=== PATIENT | male | born 2000 | race Hispanic/Latino ===

== ENCOUNTER 2022-02-22 20:17 | Emergency (ER) | payer SELFPAY ==
[2022-02-22] MEDS ORDERED: FLUORESCEIN SODIUM 1 MG/WRAP ONE (21:11)
[2022-02-22] MEDS ORDERED: TETRACAINE HCL 0.5% 4ML OPTH ONE (21:11)
--- NOTE | 2022-02-22 21:30 | EDPHYS ---
Physician Documentation [facility] – [place], [place] Name: Eyad Walter Age: 21 yrs Sex: Male : 2000 Arrival Date: 02/22/2022 Time: 20:23 Bed Treatment Private MD: ED Physician Nathalia Russell HPI: 02/22 21:24 This 21 yrs old Male presents to ER via Ambulatory with complaints of Foreign sd2 Body In Eye. 21:24 21-year-old male presents with chief complaint of "feels like there is something in my sd2 eye." He reports he works in construction and felt like a wood chip may have flown into his eye. He has had tearing and pain to the eye with photophobia.. Historical: - Allergies: 21:01 No Known Allergies; bb - Home Meds: 21:01 None [Active]; bb - PMHx: 21:01 None; bb - PSHx: 21:01 None; bb - Immunization history:: Client reports having NOT received the Covid vaccine. - Social history:: Smoking status: Patient denies any tobacco usage or history of. ROS: 21:24 Constitutional: Negative for fever, chills, and weight loss. sd2 21:24 ENT: Negative for injury, pain, and discharge. 21:24 Eyes: Positive for discharge, foreign body sensation, pain, photophobia, redness, tearing, Negative for icterus, vision loss. Exam: 21:24 Constitutional: This is a well developed, well nourished patient who is awake, alert, sd2 and in no acute distress. Head/Face: Normocephalic, atraumatic. Eyes: EOMI, injected conjunctiva to L eye only, Wood's lamp exam performed after treatment with 2 drops of tetracaine and fluorescein application and corneal abrasion noted at the 6 o'clock position measuring approximately 1.5 cm horizontally, no pain with EOM or signs of globe rupture Vital Signs: 20:57 BP 124 / 73; Pulse 66; Resp 16 S; Temp 97.6(O); Pulse Ox 99% on R/A; Weight 70.31 kg bb (R); Height 5 ft. 8 in. (172.72 cm) (R); Pain 10/10; 20:57 Body Mass Index 23.57 (70.31 kg, 172.72 cm) bb MDM: 21:03 Patient medically screened. sd2 21:24 Differential diagnosis: Corneal abrasion of Corneal ulcer of Foreign body in Acute sd2 iritis of Acute glaucoma in Ultraviolet keratitis in among others. Data reviewed: vital signs, nurses notes. I considered the following discharge prescriptions or medication management in the emergency department Medications were administered in the Emergency Department. See MAR. Historians other than the Patient: Spouse/Significant Other: . Counseling: I had a detailed discussion with the patient and/or guardian regarding: the historical points, exam findings, and any diagnostic results supporting the discharge/admit diagnosis, the need for outpatient follow up, to return to the emergency department if symptoms worsen or persist or if there are any questions or concerns that arise at home. ED course: Exam consistent with corneal abrasion. The patient was treated with ophthalmic antibiotic ointment in the ER and discharged with prescription medication. He was advised to follow-up with his primary care doctor and ophthalmology as needed. He advises understanding of discharge plan and strict return precautions at this time.. Administered Medications: 21:14 Drug: Fluorescein Strip 1 strip Route: Ophthalmic; Site: left eye; mb9 21:47 Follow up: Response: No adverse reaction mb9 21:14 Drug: Tetracaine Drops 0.5 % 1 drops Route: Ophthalmic; Site: left eye; mb9 21:47 Follow up: Response: No adverse reaction mb9 21:30 Drug: ERYTHromycin Ointment 1 application Route: Ophthalmic; Site: left eye; mb9 21:47 Follow up: Response: No adverse reaction mb9 Disposition Summary: 02/22/22 21:30 Discharge Ordered Location: Home sd2 Problem: new sd2 Symptoms: have improved sd2 Condition: Stable sd2 Diagnosis - Injury of conjunctiva and corneal abrasion without foreign body, left eye sd2 Followup: sd2 - With: Private Physician - When: 2 - 3 days - Reason: Recheck today's complaints, Continuance of care, Re-evaluation by your physician Followup: sd2 - With: Olivia Tejeda MD - When: 2 - 3 days - Reason: Wound Recheck Discharge Instructions: - Discharge Summary Sheet sd2 - Corneal Abrasion sd2 Forms: - Medication Reconciliation Form sd2 - Thank You Letter sd2 - Antibiotic Education sd2 - Prescription Opioid Use sd2 Prescriptions: - Erythromycin 5 mg/gram (0.5 %) Ophthalmic Ointment - apply 1 ribbon by OPHTHALMIC route 4 times per day for 5 days; 1 tube; Refills: sd2 0, Product Selection Permitted Signatures: Natalia Ely RN Nathalia Oliver MD MD sd2 Amisha Suarez RN RN mb9
--- NOTE | 2022-02-22 21:30 | ER ---
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 Coronavirus screen: At this time, the client does not indicate any symptoms associated with coronavirus-19. Ebola Screen: No symptoms or risks identified at this time. Initial Sepsis Screen: Does the patient meet any 2 criteria? No. Patient's initial sepsis screen is negative. Does the patient have a suspected source of infection? No. Patient's initial sepsis screen is negative. Risk Assessment: Do you want to hurt yourself or someone else? Patient reports no desire to harm self or others. Onset of symptoms was February 22, 2022. 20:57 Method Of Arrival: Ambulatory 20:57 Acuity: TORO 4 bb Historical: - Allergies: 21:01 No Known Allergies; bb - Home Meds: 21:01 None [Active]; bb - PMHx: 21:01 None; bb - PSHx: 21:01 None; bb - Immunization history:: Client reports having NOT received the Covid vaccine. - Social history:: Smoking status: Patient denies any tobacco usage or history of. Assessment: 21:14 General: Appears uncomfortable. Pain: Complains of pain in left eye. Neuro: Level of mb9 Consciousness is awake, alert, obeys commands, Oriented to person, place, time, situation, Appropriate for age. Cardiovascular: Capillary refill < 3 seconds is brisk Patient's skin is warm and dry. Respiratory: Airway is patent. GI: No signs and/or symptoms were reported involving the gastrointestinal system. : No signs and/or symptoms were reported regarding the genitourinary system. EENT: Eyes left eye is swollen and red. Derm: Skin is pink, warm \T\ dry. Musculoskeletal: Range of motion: intact in all extremities. 21:47 Reassessment: No changes from previously documented assessment. Patient and/or family mb9 updated on plan of care and expected duration. Pain level reassessed. Patient is alert, oriented x 3, equal unlabored respirations, skin warm/dry/pink. Vital Signs: 20:57 BP 124 / 73; Pulse 66; Resp 16 S; Temp 97.6(O); Pulse Ox 99% on R/A; Weight 70.31 kg bb (R); Height 5 ft. 8 in. (172.72 cm) (R); Pain 10/10; 20:57 Body Mass Index 23.57 (70.31 kg, 172.72 cm) ED Course: 20:23 Patient arrived in ED. néstor 20:28 Nathalia Russell MD is Attending Physician. sd2 21:01 Triage completed. bb 21:01 Arm band placed on Patient placed in an exam room, on a stretcher, on pulse oximetry. bb Family accompanied patient. 21:07 Amisha Suarez RN is Primary Nurse. mb9 21:29 Olivia Tejeda MD is Referral Physician. sd2 21:47 Patient did not have IV access during this emergency room visit. intact, bleeding mb9 controlled, No redness/swelling at site. Pressure dressing applied. Administered Medications: 21:14 Drug: Fluorescein Strip 1 strip Route: Ophthalmic; Site: left eye; mb9 21:47 Follow up: Response: No adverse reaction mb9 21:14 Drug: Tetracaine Drops 0.5 % 1 drops Route: Ophthalmic; Site: left eye; mb9 21:47 Follow up: Response: No adverse reaction mb9 21:30 Drug: ERYTHromycin Ointment 1 application Route: Ophthalmic; Site: left eye; mb9 21:47 Follow up: Response: No adverse reaction mb9 Outcome: 21:30 Discharge ordered by . sd2 21:47 Discharged to home ambulatory. mb9 21:47 Condition: stable 21:47 Discharge instructions given to patient, Instructed on discharge instructions, follow up and referral plans. Demonstrated understanding of instructions, follow-up care, medications, Prescriptions given X 1. 21:48 Patient left the ED. mb9 Signatures: Leann, Chrystal es Ely, Natalia, RN RN bb Drew, Nathalia, MD MD sd2 Breneman, Nesha, RN RN mb9
[2022-02-22] MEDS ORDERED: ERYTHROMYCIN 1 APPL/1 GM TUBE ONE (21:43)
[2022-02-22 22:23] VITALS: BP 124/73; TEMP 97.6; O2SAT 99
== END 2022-02-22 21:48 | disposition home or self-care (01) ==
LOC: ER 20:17
DX: S05.02XA Injury of conjunctiva and corneal abrasion without foreign body, left eye, initial encounter (principal)
CPT/HCPCS: 99283

== ENCOUNTER 2022-06-14 21:53 | Emergency (ER) | payer SELFPAY ==
[2022-06-14] MEDS ORDERED: ONDANSETRON 4 MG/2 ML VIAL ONE (23:08)
[2022-06-14] MEDS ORDERED: FAMOTIDINE 20 MG/2 ML VIAL IV ONE (23:08)
[2022-06-14] MEDS ORDERED: KETOROLAC 30 MG/ML INJ ONE (23:08)
[2022-06-14] MEDS ORDERED: NA CHLORIDE 0.9% 1,000 ML ONE (23:08)
[2022-06-14 23:14] LABS: Specific Gravity 1.028 (1.005-1.030); Urine Bilirubin NEGATIVE (Negative); Urine Blood Negative (Negative); Urine Clarity Clear (Clear); Urine Color Light-Yellow (Yellow); Urine Glucose NEGATIVE (Negative); Urine Protein NEGATIVE (Negative); Urine Urobilinogen Normal (Normal); Urine pH 6.5 (5.0-7.0)
[2022-06-14 23:26] LABS: Absolute Lymphocytes (CBC) 1.8 K/uL (0.7-4.9); Hematocrit 37.8 % (39.6-49.0); Lymphocytes % 25.5 % (15.3-44.8); MCV 87.4 fL (80-100); MPV 9.5 fL (7.6-11.3); RBC Red Blood Cell Count 4.33 M/uL (4.33-5.43)
[2022-06-14 23:37] LABS: Albumin 3.7 g/dL (3.4-5.0); Bilirubin Total 0.6 mg/dL (0.2-1.0); Potassium 3.8 mEq/L (3.5-5.1); Protein, Total 7.6 g/dL (6.4-8.2)
--- NOTE | 2022-06-15 02:34 | ER ---
Nurse's Notes [facility] Name: Eyad Walter Age: 21 yrs Sex: Male : 2000 Arrival Date: 06/14/2022 Time: 21:53 Bed 16 Private MD: Diagnosis: Diarrhea, unspecified;Nausea with vomiting, unspecified;Other pneumonia, unspecified organism Presentation: 06/14 22:04 Chief complaint: Spouse and/or significant other states: He has been having abdominal kd3 pain with Nausea vomiting and diarrhea for the past three days. Coronavirus screen: Vaccine status: Patient reports being unvaccinated. Ebola Screen: No symptoms or risks identified at this time. Initial Sepsis Screen: Does the patient meet any 2 criteria? No. Patient's initial sepsis screen is negative. Does the patient have a suspected source of infection? No. Patient's initial sepsis screen is negative. Risk Assessment: Do you want to hurt yourself or someone else? Patient reports no desire to harm self or others. Onset of symptoms was April 11, 2022. 22:04 Method Of Arrival: Ambulatory kd3 22:04 Acuity: TORO 3 kd3 Triage Assessment: 22:06 General: Appears uncomfortable, Behavior is calm, cooperative. Pain: Complains of pain kd3 in epigastric area. Neuro: Level of Consciousness is awake, alert, obeys commands, Oriented to person, place, time, situation. Respiratory: Airway is patent Trachea midline Respiratory effort is even, unlabored, Respiratory pattern is regular, symmetrical. GI: Reports upper abdominal pain, diarrhea, nausea, vomiting. Historical: - Allergies: 22:06 No Known Allergies; kd3 - Immunization history:: Adult Immunizations up to date. - Social history:: Smoking status: Patient denies any tobacco usage or history of. Screenin:56 Abuse screen: Denies threats or abuse. Denies injuries from another. Nutritional ha1 screening: No deficits noted. Tuberculosis screening: No symptoms or risk factors identified. 06/15 03:16 [facility] ED Fall Risk Assessment (Adult) History of falling in the last 3 months, ll3 including since admission No falls in past 3 months (0 pts) Confusion or Disorientation No (0 pts) Intoxicated or Sedated No (0 pts) Impaired Gait No (0 pts) Mobility Assist Device Used No (0 pt) Altered Elimination No (0 pt) Score/Fall Risk Level 0 - 2 = Low Risk Oriented to surroundings, Maintained a safe environment, Educated pt \T\ family on fall prevention, incl call for assistance when getting out of bed. Assessment: 06/14 22:07 General: Appears comfortable, Behavior is calm, cooperative. Pain: Complains of pain in ha1 epigastric area Pain does not radiate. Pain currently is 7 out of 10 on a pain scale. Quality of pain is described as burning. Neuro: Level of Consciousness is awake, alert, obeys commands, Oriented to person, place, time, situation. Cardiovascular: Capillary refill < 3 seconds Patient's skin is warm and dry. Respiratory: Airway is patent Respiratory effort is even, unlabored, Respiratory pattern is regular, symmetrical. GI: Abdomen is flat, non-distended, Bowel sounds present X 4 quads. Abd is soft and non tender X 4 quads. : Urine is clear. Derm: Skin is Skin is normal. Musculoskeletal: Circulation, motion, and sensation intact. Range of motion: intact in all extremities. 23:00 Reassessment: Patient and/or family updated on plan of care and expected duration. Pain ha1 level reassessed. Patient is alert, oriented x 3, equal unlabored respirations, skin warm/dry/pink. 06/15 00:00 Reassessment: Patient and/or family updated on plan of care and expected duration. Pain ha1 level reassessed. Patient is alert, oriented x 3, equal unlabored respirations, skin warm/dry/pink. 01:00 Reassessment: Patient and/or family updated on plan of care and expected duration. Pain ha1 level reassessed. Patient is alert, oriented x 3, equal unlabored respirations, skin warm/dry/pink. Patient states feeling better. Patient states symptoms have improved. Vital Signs: 06/14 22:02 BP 126 / 74; Pulse 63; Resp 16; Temp 98.2(O); Pulse Ox 97% on R/A; Weight 72.57 kg; kd3 Height 5 ft. 8 in. ; 23:00 BP 149 / 71; Pulse 60; Resp 16 S; Pulse Ox 100% on R/A; ha1 06/15 00:00 BP 121 / 63; Pulse 59; Resp 16 S; Pulse Ox 100% on R/A; ha1 03:17 BP 123 / 68; Pulse 58; Resp 16; Pulse Ox 99% on R/A; ll3 06/14 22:02 Body Mass Index 24.33 (72.57 kg, 172.72 cm) kd3 ED Course: 06/14 22:00 Patient arrived in ED. [id number] 22:06 Triage completed. kd3 22:06 Arm band placed on right wrist. kd3 22:07 Patient has correct armband on for positive identification. Bed in low position. Call ha1 light in reach. Side rails up X 1. Adult w/ patient. 22:08 Gary Mauro PA is PHCP. cp 22:08 Chavez Goins MD is Attending Physician. cp 22:13 Valerie Tierney RN is Primary Nurse. ha1 22:30 Inserted saline lock: 22 gauge in left antecubital area, using aseptic technique. Blood ha1 collected. 06/15 00:35 CT Abd/Pelvis - IV Contrast Only In Process Unspecified. EDMS 03:16 No provider procedures requiring assistance completed. IV discontinued, intact, ll3 bleeding controlled, No redness/swelling at site. Pressure dressing applied. Administered Medications: 06/14 23:00 Drug: TORadol - Ketorolac IVP 15 mg Route: IVP; Site: left antecubital; ha1 06/15 03:16 Follow up: Response: No adverse reaction 3 06/14 23:02 Drug: Ondansetron IVP 4 mg Route: IVP; Site: left antecubital; ha1 06/15 03:16 Follow up: Response: No adverse reaction 3 06/14 23:05 Drug: NS 0.9% IV 1000 ml Route: IV; Rate: 1 bolus; Site: left antecubital; ha1 06/15 03:15 Follow up: Response: No adverse reaction; IV Status: Completed infusion; IV Intake: ll3 1000ml 06/14 23:09 Drug: Famotidine IVP 20 mg Route: IVP; Site: left antecubital; ha1 06/15 03:15 Follow up: Response: No adverse reaction ll3 03:06 Drug: Rocephin - Rocephin (cefTRIAXone) IVPB 1 grams Route: IVPB; Infused Over: 30 ll3 mins; Site: left antecubital; 03:15 Follow up: Response: No adverse reaction; IV Status: Completed infusion; IV Intake: [id number] 03:06 Drug: AZITHromycin PO 500 mg Route: PO; ll3 03:15 Follow up: Response: Medication administered at discharge. ll3 Medication: 03:16 VIS not applicable for this client. ll3 Intake: 03:15 IV: 10ml; Total: 10ml. ll3 03:15 IV: 1000ml; Total: 1010ml. ll3 Outcome: 02:34 Discharge ordered by MD. cp 03:16 Discharged to home ambulatory, with significant other. ll3 03:16 Condition: stable 03:16 Discharge instructions given to patient, significant other, Instructed on discharge instructions, follow up and referral plans. medication usage, Demonstrated understanding of instructions, follow-up care, medications, Prescriptions given X 3. 03:17 Patient left the ED. ll3 Signatures: Dispatcher [employer] EDMS Gary Mauro PA PA cp Jeffries, Jennifer jj6 Amber Medina RN RN ll3 Elmira Garcia RN RN kd3 Valerie Tierney, RN RN ha1
--- NOTE | 2022-06-15 02:34 | EDPHYS ---
Physician Documentation [facility] Name: Eyad Walter Age: 21 yrs Sex: Male : 2000 Arrival Date: 06/14/2022 Time: 21:53 Bed 16 Private MD: ED Physician Chavez Goins HPI: 06/14 22:15 This 21 yrs old Male presents to ER via Ambulatory with complaints of cp Abdominal Pain, Nausea/Vomiting/Diarrhea. 22:15 The patient presents with abdominal pain mid abdomen. cp 22:15 Onset: The symptoms/episode began/occurred 3 day(s) ago. cp 22:15 The symptoms do not radiate. Associated signs and symptoms: Pertinent positives: cp nausea, vomiting, and diarrhea, anorexia, Pertinent negatives: blood in stools, constipation, fever, testicular pain, vomiting blood. The symptoms are described as waxing/waning. Severity of pain: in the emergency department the pain is unchanged despite home interventions. Historical: - Allergies: 22:06 No Known Allergies; kd3 - Immunization history:: Adult Immunizations up to date. - Social history:: Smoking status: Patient denies any tobacco usage or history of. ROS: 22:20 Constitutional: Positive for poor PO intake, Negative for fever. cp 22:20 Eyes: Negative for injury, pain, redness, and discharge. cp 22:20 ENT: Negative for drainage from ear(s), ear pain, sore throat, difficulty swallowing, difficulty handling secretions. 22:20 Cardiovascular: Negative for chest pain, edema, palpitations. 22:20 Respiratory: Negative for cough, shortness of breath, wheezing. 22:20 Abdomen/GI: Positive for abdominal pain, nausea and vomiting, diarrhea, anorexia, Negative for constipation, hematemesis, black/tarry stool, rectal bleeding. 22:20 : Negative for urinary symptoms, testicular pain 22:20 Neuro: Negative for altered mental status, numbness, weakness. 22:20 All other systems are negative. Exam: 22:25 Constitutional: The patient appears in no acute distress, alert, awake, non-toxic, well cp developed, well nourished. 22:25 Head/Face: Normocephalic, atraumatic. cp 22:25 Eyes: Periorbital structures: appear normal, Conjunctiva: normal, no exudate, no injection, Sclera: no appreciated abnormality, Lids and lashes: appear normal, bilaterally. 22:25 ENT: External ear(s): are unremarkable, Nose: is normal, Mouth: Lips: moist, Oral mucosa: pink and intact, moist, Posterior pharynx: is normal, airway is patent, no erythema, no exudate. 22:25 Chest/axilla: Inspection: normal. 22:25 Cardiovascular: Rate: normal, Rhythm: regular. 22:25 Respiratory: the patient does not display signs of respiratory distress, Respirations: normal, no use of accessory muscles, no retractions, labored breathing, is not present, Breath sounds: are clear throughout, no decreased breath sounds, no stridor, no wheezing. 22:25 Abdomen/GI: Inspection: abdomen appears normal, Bowel sounds: active, all quadrants, Palpation: soft, in all quadrants, mild abdominal tenderness, in the right lower quadrant and left lower quadrant, rebound tenderness, is not appreciated, involuntary guarding, is not appreciated. 22:25 Back: pain, is absent, ROM is normal. 22:25 Neuro: Orientation: to person, place \T\ time. Mentation: is normal. Vital Signs: 22:02 BP 126 / 74; Pulse 63; Resp 16; Temp 98.2(O); Pulse Ox 97% on R/A; Weight 72.57 kg; kd3 Height 5 ft. 8 in. ; 23:00 BP 149 / 71; Pulse 60; Resp 16 S; Pulse Ox 100% on R/A; ha1 06/15 00:00 BP 121 / 63; Pulse 59; Resp 16 S; Pulse Ox 100% on R/A; ha1 03:17 BP 123 / 68; Pulse 58; Resp 16; Pulse Ox 99% on R/A; ll3 06/14 22:02 Body Mass Index 24.33 (72.57 kg, 172.72 cm) kd3 MDM: 06/14 22:08 Patient medically screened. cp 06/15 02:33 Data reviewed: vital signs, nurses notes, lab test result(s), radiologic studies, CT cp scan. 02:33 Differential diagnosis: appendicitis, gastritis, non-specific abd pain, Pyelonephritis, cp Testicular Torsion, Ureterolithiasis, urinary tract infection. Consideration of Admission/Observation Escalation of care including admission/observation considered. I considered the following discharge prescriptions or medication management in the emergency department Medications were administered in the Emergency Department. See MAR. Test considered but Not performed: CT: chest. Counseling: I had a detailed discussion with the patient and/or guardian regarding: the historical points, exam findings, and any diagnostic results supporting the discharge/admit diagnosis, lab results, radiology results, the need for outpatient follow up, a family practitioner, to return to the emergency department if symptoms worsen or persist or if there are any questions or concerns that arise at home. Response to treatment: the patient's symptoms have markedly improved after treatment, and as a result, I will discharge patient. Special discussion: Based on the patient's Hx, exam, and Dx evaluation, there is no indication for emergent surgery or inpatient Tx. It is understood by the patient/guardian that if the Sx's persist or worsen they need to return immediately for re-evaluation. 06/14 22:08 Order name: Urinalysis w/ reflexes; Complete Time: 00:24 cp 06/14 22:29 Order name: CBC with Diff; Complete Time: 00:24 cp 06/15 00:24 Interpretation: Normal except: HGB 13.2; HCT 37.8. cp 06/14 22:29 Order name: CMP; Complete Time: 00:24 cp 06/15 00:24 Interpretation: Normal except: NA 134; ANION GAP 3.8; GLOB 3.9; A/G 0.9. cp 06/14 22:29 Order name: Lipase; Complete Time: 00:24 cp 06/14 22:29 Order name: CT Abd/Pelvis - IV Contrast Only cp 06/14 22:29 Order name: IV Saline Lock; Complete Time: 23:10 cp 06/14 22:29 Order name: Labs collected and sent; Complete Time: 23:10 cp Administered Medications: 06/14 23:00 Drug: TORadol - Ketorolac IVP 15 mg Route: IVP; Site: left antecubital; ha1 06/15 03:16 Follow up: Response: No adverse reaction ll3 06/14 23:02 Drug: Ondansetron IVP 4 mg Route: IVP; Site: left antecubital; ha1 06/15 03:16 Follow up: Response: No adverse reaction ll3 06/14 23:05 Drug: NS 0.9% IV 1000 ml Route: IV; Rate: 1 bolus; Site: left antecubital; ha06/15 03:15 Follow up: Response: No adverse reaction; IV Status: Completed infusion; IV Intake: ll3 1000ml 06/14 23:09 Drug: Famotidine IVP 20 mg Route: IVP; Site: left antecubital; ha1 06/15 03:15 Follow up: Response: No adverse reaction ll3 03:06 Drug: Rocephin - Rocephin (cefTRIAXone) IVPB 1 grams Route: IVPB; Infused Over: 30 ll3 mins; Site: left antecubital; 03:15 Follow up: Response: No adverse reaction; IV Status: Completed infusion; IV Intake: [id number] 03:06 Drug: AZITHromycin PO 500 mg Route: PO; ll3 03:15 Follow up: Response: Medication administered at discharge. ll3 Disposition: 07:28 Co-signature as Attending Physician, Chavez Goins MD I agree with the assessment and kdr plan of care. Disposition Summary: 06/15/22 02:34 Discharge Ordered Location: Home cp Problem: new cp Symptoms: have improved cp Condition: Stable cp Diagnosis - Diarrhea, unspecified cp - Nausea with vomiting, unspecified cp - Other pneumonia, unspecified organism cp Followup: cp - With: Private Physician - When: 2 - 3 days - Reason: Recheck today's complaints Discharge Instructions: - Discharge Summary Sheet cp - Food Choices to Help Relieve Diarrhea, Adult cp - Diarrhea, Adult cp - Nausea and Vomiting, Adult cp - Community-Acquired Pneumonia, Adult cp Forms: - Medication Reconciliation Form cp - Thank You Letter cp - Antibiotic Education cp - Prescription Opioid Use cp - Work release form kd3 Prescriptions: - Augmentin 875-125 mg Oral Tablet - take 1 tablet by ORAL route every 12 hours for 10 days; 20 tablet; Refills: 0, cp Product Selection Permitted - Zofran 4 mg Oral Tablet - take 1 tablet by ORAL route every 12 hours As needed; 20 tablet; Refills: 0, cp Product Selection Permitted - Zithromax Z-Artur 250 mg Oral Tablet - take 1 tablet by ORAL route as directed for 5 days Day 1 - take two (2) tablets cp one time. Day 2, 3, 4 , 5 take one (1) tablet once daily.; 6 tablet; Refills: 0, Product Selection Permitted Signatures: Dispatcher [facility] Chavez Sim MD MD kdr Gary Mauro PA PA cp Loubet, Lynsea RN RN ll3 Elmira Garcia RN RN kd3 Valerie Tierney, RN RN ha1
[2022-06-15] MEDS ORDERED: AZITHROMYCIN 250 MG TAB ONE (03:03)
[2022-06-15] MEDS ORDERED: CEFTRIAXONE 1000 MG/VIAL ONE (03:03)
[2022-06-15 03:38] VITALS: TEMP 98.2
[2022-06-15 04:03] VITALS: BP 121/63; O2SAT 100
--- NOTE | 2022-06-17 18:09 | RAD REPORT ---
EXAM DESCRIPTION: CT - Abdomen Pelvis W Contrast - 06/15/2022 6:29 am CLINICAL HISTORY: ABD PAIN TECHNIQUE: Axial computed tomography images of the abdomen and pelvis with intravenous contrast. S agittal and coronal reformatted images were created and reviewed. This CT exam was performed using one or more of the following dose reduction techniques: automated exposure control, adjustment of t he mA and/or kV according to patient size, and/or use of iterative reconstruction technique. COMPARISON: No relevant prior studies available. FINDINGS: Lung bases: 5 mm left lower lobe nodule (series 201 image 3). No follow-up imaging is necessary. Reticular nodular opacities at the medial right lower lobe. ABDOMEN: Liver: Unremarkable. No mass. Gallbladder and bile ducts: Unremarkable. No calcified stones. No ductal dilation. Pancreas: Unremarkable. No mass. No ductal dilation. Spleen: Unremarkable. No splenomegaly. Adrenals: Unremarkable. No mass. Kidneys and ureters: Subcentimeter left renal cortical hypodensity which is too small to characteri ze. No follow-up imaging is necessary. No calculi. No hydronephrosis. Stomach and bowel: Moderate stool proximal large bowel. No obstruction. No appreciable mucosal thickening. PELVIS: Appendix: Normal caliber appendix. No findings to suggest acute appendicitis. Bladder: Unremarkable. No mass. Reproductive: Unremarkable as visualized. ABDOMEN and PELVIS: Intraperitoneal space: Small amount of free fluid in the rectovesical space. No free air. Bones/joints: No acute fracture. No dislocation. Soft tissues: Unremarkable. Vasculature: Unremarkable. No abdominal aortic aneurysm. Lymph nodes: Subcentimeter mesenteric and ileocolic nodes. IMPRESSION: 1. There is a small amount of free fluid within the rectovesical space of uncertain et iology and clinical significance. 2. Right basilar infiltrates. 3. Other findings as above. Electronically signed by: Liang Thompson MD 06/15/2022 2:26 AM CDT Due to temporary technical issues with the PACS/Fluency reporting system, reports are being signed by the in house radiologists without review as a courtesy to insure prompt reporting. The interpreting radiologist is fully responsible for the content of the report.
== END 2022-06-15 03:17 | disposition home or self-care (01) ==
LOC: ER 21:53
DX: R19.7 Diarrhea, unspecified (principal); J18.9 Pneumonia, unspecified organism; R11.2 Nausea with vomiting, unspecified
CPT/HCPCS: 36415; 74177; 80053; 81003; 83690; 85025; 96361; 96374; 96375; 99284; J0696; J2405; J7030; Q9967